=== PATIENT | male | born 1980 | race African-American/Black ===

== ENCOUNTER 2018-07-26 14:24 | Emergency (ER) | payer SELFPAY ==
[2018-07-26] MEDS ORDERED: KETOROLAC 30 MG/ML INJ ONE (15:16)
--- NOTE | 2018-07-26 15:25 | EDPHYS ---
Physician Documentation [facility] Name: Mary Alejandro Age: 37 yrs Sex: Male : 1980 Arrival Date: 07/26/2018 Time: 14:27 Bed 12 Private MD: ED Physician Vinayak Fonseca HPI: 07/26 14:47 This 37 yrs old Black Male presents to ER via Ambulatory with complaints of Leg Pain. snw 14:47 The patient presents with pain, that is acute. The complaints affect the lateral aspect snw of left thigh and left upper thigh. Context: The problem was sustained at an unknown site, resulted from an unknown cause, the patient can fully bear weight, the patient is able to ambulate. Onset: The symptoms/episode began/occurred suddenly. Associated signs and symptoms: The patient has no apparent associated signs or symptoms. Severity of symptoms: At their worst the symptoms were moderate. The patient has not experienced similar symptoms in the past. Historical: - Allergies: 14:34 No Known Allergies; aj1 - Home Meds: 14:34 None [Active]; aj1 - PMHx: 14:34 None; aj1 - PSHx: 14:34 Hernia repair; aj1 - Immunization history:: Flu vaccine is not up to date. - Social history:: Smoking status: Patient uses tobacco products, smokes one-half pack cigarettes per day. - Ebola Screening: : Patient denies travel to an Ebola-affected area in the 21 days before illness onset. ROS: 14:46 Constitutional: Negative for fever, chills, and weight loss, Eyes: Negative for injury, snw pain, redness, and discharge, ENT: Negative for injury, pain, and discharge, Neck: Negative for injury, pain, and swelling, Cardiovascular: Negative for chest pain, palpitations, and edema, Respiratory: Negative for shortness of breath, cough, wheezing, and pleuritic chest pain, Abdomen/GI: Negative for abdominal pain, nausea, vomiting, diarrhea, and constipation, Back: Negative for injury and pain, : Negative for injury, bleeding, discharge, and swelling, Skin: Negative for injury, rash, and discoloration, Neuro: Negative for headache, weakness, numbness, tingling, and seizure. 14:46 MS/extremity: Positive for pain, of the left leg and left hip, Area with increased shooting pain on wt bearing. Exam: 14:45 Constitutional: This is a well developed, well nourished patient who is awake, alert, snw and in no acute distress. Head/Face: Normocephalic, atraumatic. Eyes: Pupils equal round and reactive to light, extra-ocular motions intact. Lids and lashes normal. Conjunctiva and sclera are non-icteric and not injected. Cornea within normal limits. Periorbital areas with no swelling, redness, or edema. ENT: Nares patent. No nasal discharge, no septal abnormalities noted. Tympanic membranes are normal and external auditory canals are clear. Oropharynx with no redness, swelling, or masses, exudates, or evidence of obstruction, uvula midline. Mucous membranes moist. Neck: Trachea midline, no thyromegaly or masses palpated, and no cervical lymphadenopathy. Supple, full range of motion without nuchal rigidity, or vertebral point tenderness. No Meningismus. Chest/axilla: Normal chest wall appearance and motion. Nontender with no deformity. No lesions are appreciated. Cardiovascular: Regular rate and rhythm with a normal S1 and S2. No gallops, murmurs, or rubs. Normal PMI, no JVD. No pulse deficits. Respiratory: Lungs have equal breath sounds bilaterally, clear to auscultation and percussion. No rales, rhonchi or wheezes noted. No increased work of breathing, no retractions or nasal flaring. Abdomen/GI: Soft, non-tender, with normal bowel sounds. No distension or tympany. No guarding or rebound. No evidence of tenderness throughout. Back: No spinal tenderness. No costovertebral tenderness. Full range of motion. Skin: Warm, dry with normal turgor. Normal color with no rashes, no lesions, and no evidence of cellulitis. Neuro: Awake and alert, GCS 15, oriented to person, place, time, and situation. Cranial nerves II-XII grossly intact. Motor strength 5/5 in all extremities. Sensory grossly intact. Cerebellar exam normal. Normal gait. Psych: Awake, alert, with orientation to person, place and time. Behavior, mood, and affect are within normal limits. 14:45 Musculoskeletal/extremity: Extremities: grossly normal except: noted in the left leg and left hip: pain, ROM: intact in all extremities, Circulation is intact in all extremities. Sensation intact. Weight bearing: able to fully bear weight, pain increased with wt bearing. Vital Signs: 14:34 BP 125 / 92; Pulse 87; Resp 18; Temp 98.2(TE); Pulse Ox 97% on R/A; Weight 108.86 kg aj1 (R); Height 6 ft. 3 in. (190.50 cm) (R); 14:34 Body Mass Index 30.00 (108.86 kg, 190.50 cm) aj1 MDM: 14:42 Patient medically screened. [facility] 14:45 Data reviewed: vital signs, nurses notes. Data interpreted: Pulse oximetry: on room air snw is 97 %. Interpretation: normal. Counseling: I had a detailed discussion with the patient and/or guardian regarding: the historical points, exam findings, and any diagnostic results supporting the discharge/admit diagnosis, the presence of at least one elevated blood pressure reading (>120/80) during this emergency department visit, the need for outpatient follow up, to return to the emergency department if symptoms worsen or persist or if there are any questions or concerns that arise at home. Special discussion: I have referred the patient to see his PCP for further evaluation of high blood pressure. Based on the history and exam findings, there is no indication for further emergent testing or inpatient evaluation. I discussed with the patient/guardian the need to see the primary care provider for further evaluation of the symptoms. 07/26 14:45 Order name: Lumbar Spine (3 Views) XRAY snw Administered Medications: 15:15 Drug: TORadol 30 mg Route: IM; Site: right deltoid; rv 15:31 Follow up: Response: No adverse reaction rv Disposition: 07/27 07:02 Co-signature as Attending Physician, Vinayak Fonseca MD I agree with the assessment and [facility] plan of care. Disposition: 07/26/18 15:23 Discharged to Home. Impression: Radiculopathy, lumbar region, Lumbago with sciatica, left side. - Condition is Stable. - Discharge Instructions: Back Pain, Adult, Hypertension, Sciatica, How to Take Your Blood Pressure, [id number], Cryotherapy, Heat Therapy, Managing Your Hypertension, Radicular Pain, Back Exercises, Form - Blood Pressure Record Sheet, Back Injury Prevention. - Prescriptions for Diclofenac Sodium 75 mg Oral Tablet Sustained Release - take 1 tablet by ORAL route 2 times per day; 30 tablet. orphenadrine citrate 100 mg Oral Tablet Sustained Release - take 1 tablet by ORAL route 2 times per day As needed; 20 tablet. - Work release form, Medication Reconciliation Form, Thank You Letter, Antibiotic Education, Prescription Opioid Use form. - Follow up: Private Physician; When: 2 - 3 days; Reason: Recheck today's complaints, Continuance of care, Re-evaluation by your physician. Follow up: Emergency Department; When: As needed; Reason: Worsening of condition. Signatures: Dispatcher [employer] EDMargoth Troncoso, RN RN ajVinayak Zhao MD MD cha Therrien, Shelly, COUNTY ENGINEER-C COUNTY ENGINEER-Csnw Torsten Feliciano, SUNIL RN rv Corrections: (The following items were deleted from the chart) 07/26 15:32 15:23 07/26/2018 15:23 Discharged to Home. Impression: Radiculopathy, lumbar region; rv Lumbago with sciatica, left side. Condition is Stable. Discharge Instructions: Back Pain, Adult, Hypertension, Sciatica, How to Take Your Blood Pressure, [id number], Managing Your Hypertension, Form - Blood Pressure Record Sheet. Prescriptions for Diclofenac Sodium 75 mg Oral Tablet Sustained Release - take 1 tablet by ORAL route 2 times per day; 30 tablet, orphenadrine citrate 100 mg Oral Tablet Sustained Release - take 1 tablet by ORAL route 2 times per day As needed; 20 tablet. and Forms are Medication Reconciliation Form, Thank You Letter, Antibiotic Education, Prescription Opioid Use. Follow up: Private Physician; When: 2 - 3 days; Reason: Recheck today's complaints, Continuance of care, Re-evaluation by your physician. Follow up: Emergency Department; When: As needed; Reason: Worsening of condition. snw
--- NOTE | 2018-07-26 15:25 | ER ---
Nurse's Notes [facility] Name: Mary Alejandro Age: 37 yrs Sex: Male : 1980 Arrival Date: 07/26/2018 Time: 14:27 Bed 12 Private MD: Diagnosis: Radiculopathy, lumbar region;Lumbago with sciatica, left side Presentation: 07/26 14:32 Presenting complaint: Patient states: "The past week I have a pain the goes from there aj1 (pt point to left hip) and goes all the way down the leg" Reports the pain is worse when he walks. Patient denies injury to the left leg. Transition of care: patient was not received from another setting of care. Onset of symptoms was July 19, 2018. Risk Assessment: Do you want to hurt yourself or someone else? Patient reports no desire to harm self or others. Initial Sepsis Screen: Does the patient meet any 2 criteria? No. Patient's initial sepsis screen is negative. Does the patient have a suspected source of infection? No. Patient's initial sepsis screen is negative. Care prior to arrival: None. 14:32 Method Of Arrival: Ambulatory aj1 14:32 Acuity: BARNEY 4 aj1 Triage Assessment: 14:34 General: Appears in no apparent distress. comfortable, Behavior is calm, cooperative, aj1 appropriate for age. Pain: Complains of pain in left hip Pain radiates to left leg Pain currently is 7 out of 10 on a pain scale. Quality of pain is described as throbbing, Pain began one weekago Is continuous, Aggravated by walking. EENT: No signs and/or symptoms were reported regarding the EENT system. Neuro: Level of Consciousness is awake, alert, obeys commands, Oriented to person, place, time, situation. Cardiovascular: Patient's skin is warm and dry. Respiratory: Airway is patent Respiratory effort is even, unlabored, Respiratory pattern is regular, symmetrical. GI: No signs and/or symptoms were reported involving the gastrointestinal system. : No signs and/or symptoms were reported regarding the genitourinary system. Derm: No signs and/or symptoms reported regarding the dermatologic system. Skin is pink, warm \\T\\ dry. normal. Musculoskeletal: Circulation, motion, and sensation intact. Historical: - Allergies: 14:34 No Known Allergies; aj1 - Home Meds: 14:34 None [Active]; aj1 - PMHx: 14:34 None; aj1 - PSHx: 14:34 Hernia repair; aj1 - Immunization history:: Flu vaccine is not up to date. - Social history:: Smoking status: Patient uses tobacco products, smokes one-half pack cigarettes per day. - Ebola Screening: : Patient denies travel to an Ebola-affected area in the 21 days before illness onset. Screenin:35 Abuse screen: Denies threats or abuse. Denies injuries from another. Nutritional aj1 screening: No deficits noted. Tuberculosis screening: No symptoms or risk factors identified. 15:06 Fall Risk None identified. rv Assessment: 14:35 Reassessment: see triage assessment. aj1 15:04 General: Appears in no apparent distress. comfortable, Behavior is calm, cooperative. rv Pain: Complains of pain in left leg. Neuro: Level of Consciousness is awake, alert, obeys commands, Oriented to person, place, time, situation. Cardiovascular: Capillary refill < 3 seconds. Respiratory: Airway is patent. GI: No signs and/or symptoms were reported involving the gastrointestinal system. : No signs and/or symptoms were reported regarding the genitourinary system. : No signs and/or symptoms were reported regarding the genitourinary system. EENT: No signs and/or symptoms were reported regarding the EENT system. Derm: Skin is intact. Musculoskeletal: Reports pain in left leg. Vital Signs: 14:34 BP 125 / 92; Pulse 87; Resp 18; Temp 98.2(TE); Pulse Ox 97% on R/A; Weight 108.86 kg aj1 (R); Height 6 ft. 3 in. (190.50 cm) (R); 14:34 Body Mass Index 30.00 (108.86 kg, 190.50 cm) aj1 ED Course: 14:27 Patient arrived in ED. mr 14:33 Triage completed. aj1 14:34 Arm band placed on Patient placed in an exam room. aj1 14:35 Patient has correct armband on for positive identification. Bed in low position. Call aj1 light in reach. Side rails up X 1. 14:35 No provider procedures requiring assistance completed. aj1 14:39 Lawanda Rivas FNP-C is PHCP. snw 14:39 Vinayak Fonseca MD is Attending Physician. snw 14:59 Torsten Feliciano, SUNIL is Primary Nurse. rv 15:11 Lumbar Spine (3 Views) XRAY In Process Unspecified. EDMS 15:31 Patient did not have IV access during this emergency room visit. rv Administered Medications: 15:15 Drug: TORadol 30 mg Route: IM; Site: right deltoid; rv 15:31 Follow up: Response: No adverse reaction rv Outcome: 15:23 Discharge ordered by . snw 15:31 Discharged to home ambulatory. rv 15:31 Condition: good 15:31 Discharge instructions given to patient, Instructed on discharge instructions, follow up and referral plans. medication usage, Demonstrated understanding of instructions, follow-up care, medications, Prescriptions given X 2. 15:32 Patient left the ED. rv Signatures: Dispatcher [employer] EDKY Margoth Foreman, RN RN aj1 Lawanda Rivas, BIG DATA ENGINEER-C BIG DATA ENGINEER-Csnw Latia Moreau mr Torsten Feliciano, RN RN rv
--- NOTE | 2018-07-26 16:12 | RAD REPORT ---
EXAM DESCRIPTION: RAD - Lumbar Spine 3 Views - 07/26/2018 3:15 pm CLINICAL HISTORY: Pain, left lower extremity radiculopathy COMPARISON: None. FINDINGS: A three-view lumbar spine examination was performed. Lumbar bodies are normal in height an d alignment. No fracture or acute bony process seen. No abnormal disc space narrowing. L5 body is par tially sacralized which would explain the relative narrowing of the L5-S1 disc space. No significant facet joint degenerative change. No pars defects identified. IMPRESSION: Negative Lumbar Spine examination for acute or significant finding. Continued unexplained symptoms can be addressed with MR imaging.
== END 2018-07-26 15:32 | disposition home or self-care (01) ==
LOC: ER 14:24
DX: M54.16 Radiculopathy, lumbar region (principal); M54.42 Lumbago with sciatica, left side; F17.210 Nicotine dependence, cigarettes, uncomplicated
CPT/HCPCS: 72100; 96372; 99283

== ENCOUNTER 2022-04-03 20:30 | Inpatient (IN) | payer SELFPAY ==
[2022-04-03] MEDS ORDERED: NA CHLORIDE 0.9% 1,000 ML ONE (22:13)
[2022-04-03] MEDS ORDERED: DICYCLOMINE HCL 20 MG/2 ML AMP IM ONE (22:13)
[2022-04-03] MEDS ORDERED: ONDANSETRON 4 MG/2 ML VIAL ONE (22:13)
[2022-04-03 22:29] LABS: Urine Blood 1+ (Negative); Urine Glucose 2+ (Negative); Urine Protein 1+ (Negative); Urine Specific Gravity >=1.030 (1.005-1.030)
[2022-04-03 22:40] LABS: Absolute Lymphocytes (CBC) 1.3 K/uL (0.7-4.9); Hematocrit 46.5 % (39.6-49.0); MCV 91.7 fL (80-100); MPV 10.6 fL (7.6-11.3); RBC Red Blood Cell Count 5.06 M/uL (4.33-5.43)
[2022-04-03 22:56] LABS: Urine Bacteria <20 /HPF (<20); Urine Mucus Slight /HPF (None Seen); Urine RBC <5 /HPF (None Seen)
[2022-04-03 23:01] LABS: ALT/SGPT 20 U/L (16-61); Albumin 3.2 g/dL (3.4-5.0); Alkaline Phosphatase 109 U/L (45-117); BUN Blood Urea Nitrogen 17 mg/dL (7-18); Bicarbonate 16 mmol/L (21-32); Bilirubin Total 0.9 mg/dL (0.2-1.0); Glomerular Filtration Rate 62 ml/min (=/>90); Glucose Level 331 mg/dL (74-106); Lipase 222 U/L (73-393); Protein, Total 8.8 g/dL (6.4-8.2); Sodium Level 129 mmol/L (136-145)
[2022-04-03 23:02] LABS: AST/SGOT 21 U/L (15-37); Potassium 5.1 mmol/L (3.5-5.1)
[2022-04-04 00:20] LABS: SARS-CoV-2 Antigen Rapid Res Negative (Negative)
--- NOTE | 2022-04-04 00:38 | EDPHYS ---
Physician Documentation [facility] Name: Mary Carver Age: 41 yrs Sex: Male : 1980 Arrival Date: 04/03/2022 Time: 20:32 Bed 3 Private MD: ED Physician Vinayak Fonseca HPI: 04/03 22:00 This 41 yrs old Black Male presents to ER via Ambulatory with complaints of High Blood cp Sugar, Nausea. 22:00 The patient or guardian reports hyperglycemia. cp 22:00 Onset: The symptoms/episode began/occurred for past several days. Associated signs and cp symptoms: Pertinent positives: nausea, lower abdominal pain. Current symptoms: In the emergency department the patient's symptoms are unchanged from the initial presentation, despite home interventions. Significant other reports she has been administering Insulin over past couple days to try and lower blood sugar. Historical: - Allergies: 21:20 No Known Allergies; lg3 - Home Meds: 21:20 None [Active]; lg3 - PMHx: 21:20 None; lg3 - PSHx: 21:20 umbilical hernia; lg3 - Immunization history:: Adult Immunizations not up to date, Client reports having NOT received the Covid vaccine. Flu vaccine is not up to date. - Social history:: Smoking status: Patient reports the use of cigarette tobacco products, smokes one pack cigarettes per day. Patient uses alcohol, on a daily basis. ROS: 22:05 Constitutional: Negative for body aches, chills, fever, poor PO intake. cp 22:05 Eyes: Negative for injury, pain, redness, and discharge. cp 22:05 ENT: Negative for drainage from ear(s), ear pain, sore throat, difficulty swallowing, difficulty handling secretions. 22:05 Cardiovascular: Negative for chest pain, edema, palpitations. 22:05 Respiratory: Negative for cough, shortness of breath, wheezing. 22:05 Abdomen/GI: Positive for abdominal pain, nausea, Negative for vomiting, diarrhea, constipation. 22:05 Back: Negative for pain at rest, pain with movement. 22:05 : Positive for urinary frequency, Negative for burning with urination, penile discharge, testicular pain 22:05 Neuro: Negative for altered mental status. 22:05 All other systems are negative. Exam: 22:10 Constitutional: The patient appears in no acute distress, alert, awake, cp non-diaphoretic, non-toxic, well developed, well nourished. 22:10 Head/Face: Normocephalic, atraumatic. cp 22:10 Eyes: Periorbital structures: appear normal, Pupils: equal, round, and reactive to light and accomodation, Extraocular movements: intact throughout, Conjunctiva: normal, no exudate, no injection, Sclera: no appreciated abnormality, Lids and lashes: appear normal, bilaterally. 22:10 ENT: External ear(s): are unremarkable, Nose: is normal, Mouth: Lips: moist, Oral mucosa: pink and intact, moist, Posterior pharynx: Airway: no evidence of obstruction, patent. 22:10 Chest/axilla: Inspection: normal. 22:10 Cardiovascular: Rate: tachycardic, Rhythm: regular, Edema: is not appreciated, JVD: is not appreciated. 22:10 Respiratory: the patient does not display signs of respiratory distress, Respirations: normal, no use of accessory muscles, no retractions, labored breathing, is not present, Breath sounds: are clear throughout, no decreased breath sounds, no stridor, no wheezing. 22:10 Abdomen/GI: Inspection: abdomen appears normal, Bowel sounds: active, all quadrants, Palpation: soft, in all quadrants, moderate abdominal tenderness, in the right lower quadrant and left lower quadrant, rebound tenderness, is not appreciated, involuntary guarding, is not appreciated. 22:10 Back: CVA tenderness, is absent. 22:10 Skin: cellulitis, is not appreciated, no rash present. 22:10 Neuro: Orientation: to person, place \T\ time. Mentation: able to follow commands, slow to respond, Motor: moves all fours, strength is normal, Sensation: no obvious gross deficits. Vital Signs: 21:17 BP 132 / 93; Pulse 111; Resp 19 S; Temp 98.6(O); Pulse Ox 100% on R/A; Weight 111.13 kg lg3 (R); Height 6 ft. 3 in. (190.50 cm) (R); Pain 6/10; 22:30 BP 144 / 92; Pulse 96; Resp 20; Pulse Ox 97% on R/A; Pain 3/10; pf1 23:18 BP 133 / 79; Pulse 95; Resp 18; Pulse Ox 96% on R/A; Pain 3/10; pf1 04/04 00:00 BP 137 / 81; Pulse 97; Resp 17; Pulse Ox 96% on R/A; Pain 1/10; pf1 01:00 BP 150 / 84; Pulse 101; Resp 19; Pulse Ox 96% on R/A; Pain 0/10; pf1 02:00 BP 139 / 83; Pulse 100; Resp 17; Temp 98; Pulse Ox 96% on R/A; Pain 0/10; pf1 04/03 21:17 Body Mass Index 30.62 (111.13 kg, 190.50 cm) lg3 MDM: 04/03 21:43 Patient medically screened. cp 04/04 00:35 Data reviewed: vital signs, nurses notes, lab test result(s), radiologic studies, CT cp scan. 00:35 Consideration of Admission/Observation Patient was admitted/placed on observation. cp Management of patient was discussed with the following: Hospitalist: Gio Doherty with admit patient after discussion. I considered the following discharge prescriptions or medication management in the emergency department Medications were administered in the Emergency Department. See MAR. Historians other than the Patient: Spouse/Significant Other: Significant other provides HPI. Counseling: I had a detailed discussion with the patient and/or guardian regarding: the historical points, exam findings, and any diagnostic results supporting the discharge/admit diagnosis, lab results, radiology results, the need for further work-up and treatment in the hospital. 04/03 21:41 Order name: Glucose, Ancillary Testing; Complete Time: 21:43 EDMS 04/03 21:44 Order name: CBC with Diff; Complete Time: 22:56 cp 04/03 22:56 Interpretation: Reviewed. cp 04/03 21:44 Order name: CMP; Complete Time: 23:24 cp 04/03 21:44 Order name: Lipase; Complete Time: 23:24 cp 04/03 21:44 Order name: Urine Microscopic Only; Complete Time: 23:24 cp 04/03 21:44 Order name: Ketone, Serum; Complete Time: 23:24 cp 04/03 22:07 Order name: CT Abd/Pelvis - IV Contrast Only cp 04/03 22:30 Order name: Urine Dipstick-Ancillary; Complete Time: 22:39 EDMS 04/03 22:39 Interpretation: Normal except: UGLUC 2+; UKET 3+; UBLD 1+; UPROT 1+. cp 04/03 23:27 Order name: SARS RAPID; Complete Time: 00:35 la1 04/04 00:16 Order name: BMP; Complete Time: 01:19 la1 04/04 01:19 Interpretation: Normal except: NA 132; CO2 13; ANION GAP 23.6; GLUC 315; GFR 87; CA 9.2.cp 04/04 00:45 Order name: Lipid Profile; Complete Time: 01:40 vc1 04/03 21:44 Order name: IV Saline Lock; Complete Time: 22:34 cp 04/03 21:44 Order name: Labs collected and sent; Complete Time: 22:35 cp 04/03 21:44 Order name: Urine Dipstick-Ancillary (obtain specimen); Complete Time: 22:35 cp Administered Medications: 04/03 22:25 Drug: Zofran (Ondansetron) 4 mg Route: IVP; Site: left antecubital; pf1 23:01 Follow up: Response: No adverse reaction; Marked relief of symptoms; Nausea is decreasedpf1 22:25 Drug: NS 0.9% 1000 ml Route: IV; Rate: 1 bolus; Site: left antecubital; pf1 23:30 Follow up: IV Status: Completed infusion; IV Intake: 1000ml pf1 22:30 Drug: NS 0.9% 1000 ml Route: IV; Rate: 1 bolus; Site: left antecubital; pf1 23:30 Follow up: Response: No adverse reaction; Marked relief of symptoms pf1 23:30 Follow up: IV Status: Completed infusion; IV Intake: 1000ml pf1 22:30 Drug: Dicyclomine 20 mg Route: IM; Site: left gluteus; pf1 23:03 Follow up: Response: No adverse reaction; Marked relief of symptoms; Pain is decreased; pf1 RASS: Alert and Calm (0) 04/04 01:40 Drug: Insulin Drip - (Insulin Regular Human 100 units, NS 0.9% 100 ml) {Co-Signature: pf1 aa9 (Cary Denney RN).} Route: IV; Rate: 5 units/hr; Site: left antecubital; 02:04 Follow up: Response: No adverse reaction pf1 01:50 Drug: NS 0.45 % 1000 ml Route: IV; Rate: 125 ml/hr; Site: right antecubital; pf1 02:04 Follow up: Response: No adverse reaction pf1 Disposition Summary: 04/04/22 00:37 Hospitalization Ordered Hospitalization Status: Inpatient Admission cp Provider: Scott Nettles cp Location: Intensive Care Unit cp Condition: Fair cp Problem: new cp Symptoms: have improved cp Bed/Room Type: Standard cp Room Assignment: 7-(04/04/22 01:43) cg Diagnosis - Other specified diabetes mellitus with ketoacidosis cp - Acute pancreatitis without necrosis or infection, unspecified cp Forms: - Medication Reconciliation Form cp - SBAR form cp Signatures: Dispatcher [employer] EDMS Gio Doherty, ISAIAH-C PRODUCTION REPRODUCTION MANAGER-Cla1 Vinayak Lin PA PA cp Ranjana Guzmán RN RN cg Brittany Zacarias RN RN lg3 Ruth cowan RN RN pf1 Cary Denney RN aa9 Corrections: (The following items were deleted from the chart) 01:28 00:37 cp cg 01:43 01:28 3- cg cg
--- NOTE | 2022-04-04 00:38 | ER ---
Nurse's Notes [facility] Name: Mary Carver Age: 41 yrs Sex: Male : 1980 Arrival Date: 04/03/2022 Time: 20:32 Bed 3 Private MD: Diagnosis: Other specified diabetes mellitus with ketoacidosis;Acute pancreatitis without necrosis or infection, unspecified Presentation: 04/03 21:17 Chief complaint: Patient states: increased urination and thirst for the last few days. lg3 abdominal pain with nausea. no appetite. finger sticks at home ranging 250's-350's. not diagnosed as diabetic. taking over the counter insulin at home but nothing is lowering sugars. Coronavirus screen: Client denies travel out of the [place] in the last 14 days. At this time, the client does not indicate any symptoms associated with coronavirus-19. Ebola Screen: No symptoms or risks identified at this time. Initial Sepsis Screen: Does the patient meet any 2 criteria? No. Patient's initial sepsis screen is negative. Does the patient have a suspected source of infection? No. Patient's initial sepsis screen is negative. Risk Assessment: Do you want to hurt yourself or someone else? Patient reports no desire to harm self or others. Onset of symptoms is unknown. 21:17 Method Of Arrival: Ambulatory lg3 21:17 Acuity: BARNEY 3 lg3 Triage Assessment: 21:20 General: Appears in no apparent distress. comfortable, Behavior is calm, cooperative. lg3 Pain: Complains of pain in abdomen Pain radiates to back Pain currently is 6 out of 10 on a pain scale. Quality of pain is described as squeezing. EENT: No deficits noted. No signs and/or symptoms were reported regarding the EENT system. Neuro: No deficits noted. [place] Agitation-Sedation Scale (RASS): 0 - Alert and Calm Level of Consciousness is awake, alert, obeys commands, Oriented to person, place, time, situation. Cardiovascular: No deficits noted. Denies chest pain, shortness of breath, Capillary refill < 3 seconds Clubbing of nail beds is absent JVD is absent Patient's skin is warm and dry. Respiratory: No deficits noted. Airway is patent Trachea midline Respiratory effort is even, unlabored, Respiratory pattern is regular, symmetrical. GI: Abdomen is flat, non-distended, Reports lower abdominal pain, anorexia, cramping, intolerance of fluids, intolerance of food, nausea. : No deficits noted. No signs and/or symptoms were reported regarding the genitourinary system. Derm: No deficits noted. No signs and/or symptoms reported regarding the dermatologic system. Skin is intact, is healthy with good turgor, Skin is dry, Skin is normal. Musculoskeletal: No deficits noted. Circulation, motion, and sensation intact. Range of motion: intact in all extremities. Historical: - Allergies: 21:20 No Known Allergies; lg3 - Home Meds: 21:20 None [Active]; lg3 - PMHx: 21:20 None; lg3 - PSHx: 21:20 umbilical hernia; lg3 - Immunization history:: Adult Immunizations not up to date, Client reports having NOT received the Covid vaccine. Flu vaccine is not up to date. - Social history:: Smoking status: Patient reports the use of cigarette tobacco products, smokes one pack cigarettes per day. Patient uses alcohol, on a daily basis. Screenin:30 [facility] ED Fall Risk Assessment (Adult) History of falling in the last 3 months, pf1 including since admission No falls in past 3 months (0 pts) Confusion or Disorientation No (0 pts) Intoxicated or Sedated No (0 pts) Impaired Gait No (0 pts) Mobility Assist Device Used No (0 pt) Altered Elimination No (0 pt) Score/Fall Risk Level 0 - 2 = Low Risk Oriented to surroundings, Maintained a safe environment, Educated pt \T\ family on fall prevention, incl call for assistance when getting out of bed, Assessed \T\ reinforced patient's understanding of fall precautions, Provided non-skid footwear, Hourly rounding (assess needs \T\ fall precautionary measures) done, Used ambulatory aids as needed (educated on \T\ assisted with). 21:30 Abuse screen: Denies threats or abuse. Nutritional screening: No deficits noted. pf1 Tuberculosis screening: No symptoms or risk factors identified. Assessment: 21:30 General: Appears in no apparent distress. comfortable, well groomed, well developed, pf1 Behavior is calm, cooperative, appropriate for age, quiet. 21:30 Neuro: No deficits noted. Level of Consciousness is awake, alert, obeys commands, pf1 Oriented to person, place, time, situation. EENT: No deficits noted. No signs and/or symptoms were reported regarding the EENT system. 21:30 General: Behavior is quiet. Pain: Complains of pain in abdomen Pain currently is 6 out pf1 of 10 on a pain scale. Cardiovascular: No deficits noted. Capillary refill < 3 seconds Patient's skin is warm and dry. Respiratory: No deficits noted. Airway is patent Trachea midline Respiratory effort is even, unlabored, Respiratory pattern is regular, symmetrical, Breath sounds are clear bilaterally. GI: Abdomen is round non-distended, Reports lower abdominal pain, nausea, with increase thirst and increase urination for 3 days. : Reports increase urination for 3 days. 21:30 General: stated patient's FSBGL has been running high: 347 BGL yesterday and pf1 240-306 today. stated has been giving patient regular insulin 12 units this AM, that is not prescribed to patient.. 22:30 Reassessment: Patient appears in no apparent distress at this time. Patient and/or pf1 family updated on plan of care and expected duration. Pain level reassessed. Patient is alert, oriented x 3, equal unlabored respirations, skin warm/dry/pink. Patient states symptoms have improved. 23:30 Reassessment: Patient appears in no apparent distress at this time. Patient and/or pf1 family updated on plan of care and expected duration. Pain level reassessed. Patient is alert, oriented x 3, equal unlabored respirations, skin warm/dry/pink. Patient states feeling better. Patient states symptoms have improved. 04/04 00:30 Reassessment: Patient appears in no apparent distress at this time. Patient and/or pf1 family updated on plan of care and expected duration. Pain level reassessed. Patient is alert, oriented x 3, equal unlabored respirations, skin warm/dry/pink. Patient states feeling better. Patient states symptoms have improved. 01:30 Reassessment: Patient appears in no apparent distress at this time. Patient and/or pf1 family updated on plan of care and expected duration. Pain level reassessed. Patient is alert, oriented x 3, equal unlabored respirations, skin warm/dry/pink. Patient denies pain at this time. Patient states feeling better. Patient states symptoms have improved. Vital Signs: 04/03 21:17 BP 132 / 93; Pulse 111; Resp 19 S; Temp 98.6(O); Pulse Ox 100% on R/A; Weight 111.13 kg lg3 (R); Height 6 ft. 3 in. (190.50 cm) (R); Pain 6/10; 22:30 BP 144 / 92; Pulse 96; Resp 20; Pulse Ox 97% on R/A; Pain 3/10; pf1 23:18 BP 133 / 79; Pulse 95; Resp 18; Pulse Ox 96% on R/A; Pain 3/10; pf1 04/04 00:00 BP 137 / 81; Pulse 97; Resp 17; Pulse Ox 96% on R/A; Pain 1/10; pf1 01:00 BP 150 / 84; Pulse 101; Resp 19; Pulse Ox 96% on R/A; Pain 0/10; pf1 02:00 BP 139 / 83; Pulse 100; Resp 17; Temp 98; Pulse Ox 96% on R/A; Pain 0/10; pf1 04/03 21:17 Body Mass Index 30.62 (111.13 kg, 190.50 cm) lg3 ED Course: 04/03 20:32 Patient arrived in ED. as 20:57 Vinayak Lin PA is PHCP. cp 20:57 Vinayak Fonseca MD is Attending Physician. cp 21:20 Triage completed. lg3 21:20 Arm band placed on left wrist. lg3 21:30 Patient has correct armband on for positive identification. Placed in gown. Bed in low pf1 position. Call light in reach. Side rails up X 1. 22:25 Inserted saline lock: 20 gauge in left antecubital area, using aseptic technique. Blood pf1 collected. 22:35 Urine Microscopic Only Sent. pf1 22:35 Lipase Sent. pf1 22:35 CMP Sent. pf1 22:35 CBC with Diff Sent. pf1 22:35 Ketone, Serum Sent. pf1 22:36 Ruth cowan, SUNIL is Primary Nurse. pf1 22:48 Warm blanket given. aa9 23:16 CT Abd/Pelvis - IV Contrast Only In Process Unspecified. EDMS 04/04 00:36 Scott Nettles MD is Hospitalizing Provider. cp 01:07 BMP Sent. pf1 01:07 Lipid Profile Sent. pf1 01:52 Inserted saline lock: 20 gauge in right antecubital area, using aseptic technique. ds4 02:06 No provider procedures requiring assistance completed. pf1 02:06 Patient admitted, IV remains in place. pf1 Administered Medications: 04/03 22:25 Drug: Zofran (Ondansetron) 4 mg Route: IVP; Site: left antecubital; pf1 23:01 Follow up: Response: No adverse reaction; Marked relief of symptoms; Nausea is decreasedpf1 22:25 Drug: NS 0.9% 1000 ml Route: IV; Rate: 1 bolus; Site: left antecubital; pf1 23:30 Follow up: IV Status: Completed infusion; IV Intake: 1000ml pf1 22:30 Drug: NS 0.9% 1000 ml Route: IV; Rate: 1 bolus; Site: left antecubital; pf1 23:30 Follow up: Response: No adverse reaction; Marked relief of symptoms pf1 23:30 Follow up: IV Status: Completed infusion; IV Intake: 1000ml pf1 22:30 Drug: Dicyclomine 20 mg Route: IM; Site: left gluteus; pf1 23:03 Follow up: Response: No adverse reaction; Marked relief of symptoms; Pain is decreased; pf1 RASS: Alert and Calm (0) 04/04 01:40 Drug: Insulin Drip - (Insulin Regular Human 100 units, NS 0.9% 100 ml) {Co-Signature: pf1 aa9 (Cary Denney RN).} Route: IV; Rate: 5 units/hr; Site: left antecubital; 02:04 Follow up: Response: No adverse reaction pf1 01:50 Drug: NS 0.45 % 1000 ml Route: IV; Rate: 125 ml/hr; Site: right antecubital; pf1 02:04 Follow up: Response: No adverse reaction pf1 Medication: 02:06 VIS not applicable for this client. pf1 Intake: 04/03 23:30 IV: 1000ml; Total: 1000ml. pf1 23:30 IV: 1000ml; Total: 2000ml. pf1 Outcome: 04/04 00:37 Decision to Hospitalize by Provider. cp 02:14 Admitted to ICU accompanied by nurse, via stretcher, room 7, on monitor, with chart, pf1 Report called to SUNIL Davis 02:14 Condition: stable 02:14 Instructed on the need for admit, Demonstrated understanding of instructions. 02:23 Patient left the ED. pf1 Signatures: Dispatcher [employer] EDMS Sonja Winn Donovan ds4 Vinayak Lin PA PA cp Gibson, Lacie, RN RN lg3 Cary Denney, SUNIL RN aa9 Ruth ocwan RN RN pf1 Cary Denney RN aa9 Corrections: (The following items were deleted from the chart) 04/03 23:16 21:00 General: Appears in no apparent distress. comfortable, well groomed, well pf1 developed, Behavior is calm, cooperative, appropriate for age, quiet, pf1 23:16 21:00 Pain: Complains of pain in lower abdominal pain.onset yesterday Pain currently is pf1 6 out of 10 on a pain scale. pf1 23:16 21:00 Neuro: No deficits noted. Level of Consciousness is awake, alert, obeys commands, pf1 Oriented to person, place, time, situation, pf1 23:16 21:00 Cardiovascular: No deficits noted. Capillary refill < 3 seconds Patient's skin is pf1 warm and dry. pf1 23:16 21:00 GI: Abdomen is flat, non-distended, Bowel sounds present X 4 quads. Abd is soft pf1 and non tender X 4 quads. Reports lower abdominal pain, nausea, pf1 23:16 21:00 : No deficits noted. Reports increase urination for 3 days pf1 pf1 23:16 21:00 GI: Reports with increase thirst for 3 days pf1 pf1 23:16 21:00 EENT: No deficits noted. No signs and/or symptoms were reported regarding the pf1 EENT system. pf1 23:16 21:00 Derm: No deficits noted. No signs and/or symptoms reported regarding the pf1 dermatologic system. pf1
[2022-04-04 01:16] LABS: Potassium 4.6 mmol/L (3.5-5.1)
--- NOTE | 2022-04-04 01:34 | P.HP ---
Certification for Inpatient Patient admitted to: Inpatient With expected LOS: >2 Midnights Patient will require the following post-hospital care: None Practitioner: I am a practitioner with admitting privileges, knowledge of patient current condition, hospital course, and medical plan of care. Services: Services provided to patient in accordance with Admission requirements found in Title 42 Section 412.3 of the Code of Federal Regulations <[place] - Last Filed: 04/04/22 01:30> Patient History Date of Service: 04/04/22 Reason for admission: DKA, pancreatitis History of Present Illness: 41-year-old male who denies any previous medical history presents the emergency department with high blood sugar, nausea, abdominal pain. His family at bedside reports that a couple years ago he was told he was diabetic and he took insulin for a short period of time but stopped taking it on his own volition. He reports abdominal pain and nausea last few days as well as increased thirst/urination. His checked his blood sugar and found it to be running in the 300s. His labs in the ER demonstrated DKA, CT abdomen pelvis IV contrast showed mild uncomplicated acute pancreatitis, lipase was within normal limits although patient does have mild abdominal pain. He was started on insulin drip, will be moved to the ICU for further management. - Past Medical/Surgical History -: Diabetes mellitus type 2 -: Hernia repair Psychosocial/ Personal History: Lives at home with family - Family History Mother -: Diabetes, Stroke - Social History Smoking Status: Current every day smoker Smoking therapy provided: No (Patient declined) Alcohol use: Yes CD- Drugs: No Caffeine use: No Place of Residence: Home <BessyGio - Last Filed: 04/04/22 01:30> Date of Service: 04/04/22 <Scott Nettles - Last Filed: 04/04/22 19:58> Review of Systems 10-point ROS is otherwise unremarkable Gastrointestinal: Nausea, Abdominal Pain <Gio Doherty - Last Filed: 04/04/22 01:30> Physical Examination - Physical Exam General: Alert, In no apparent distress, Oriented x3 HEENT: Atraumatic, PERRLA, Mucous membr. moist/pink, EOMI, Sclerae nonicteric Neck: Supple, 2+ carotid pulse no bruit, No LAD, Without JVD or thyroid abnormality Respiratory: Clear to auscultation bilaterally, Normal air movement Cardiovascular: Regular rate/rhythm, Normal S1 S2 Capillary refill: <2 Seconds Gastrointestinal: Normal bowel sounds, No tenderness Musculoskeletal: No tenderness Integumentary: No rashes Neurological: Normal speech, Normal strength at 5/5 x4 extr, Normal tone, Normal affect Lymphatics: No axilla or inguinal lymphadenopathy - Studies Laboratory Data (last 24 hrs) 04/04/22 00:45: Sodium 132 L, Potassium 4.6, BUN 17, Creatinine 1.09, Glucose 315 H 04/03/22 22:20: Sodium 129 L, Potassium 5.1, BUN 17, Creatinine 1.45 H, Glucose 331 H, Total Bilirubin 0.9, AST 21, ALT 20, Alkaline Phosphatase 109, Lipase 222 04/03/22 22:20: WBC 14.00 H, Hgb 15.6, Hct 46.5, Plt Count 159 <Gio Doherty - Last Filed: 04/04/22 01:30> - Studies Laboratory Data (last 24 hrs) 04/04/22 00:45: Triglycerides 358 H, Cholesterol 238 H, HDL Cholesterol 51, Cholesterol/HDL Ratio 4.67 04/04/22 00:45: Sodium 132 L, Potassium 4.6, BUN 17, Creatinine 1.09, Glucose 315 H 04/03/22 22:20: Sodium 129 L, Potassium 5.1, BUN 17, Creatinine 1.45 H, Glucose 331 H, Total Bilirubin 0.9, AST 21, ALT 20, Alkaline Phosphatase 109, Lipase 222 04/03/22 22:20: WBC 14.00 H, Hgb 15.6, Hct 46.5, Plt Count 159 <Scott Nettles - Last Filed: 04/04/22 19:58> Assessment and Plan - Plan Assessment: Diabetes mellitus type 2 with DKA Acute pancreatitis Plan: Diabetes mellitus type 2 with DKA Insulin drip, hourly Accu-Cheks, every 4 hour BMP, A1c in the morning. Patient not on any antidiabetic agents at home. Acute pancreatitis Lipase within normal limits CT shows mild uncomplicated pancreatitis, patient with mild abdominal pain no tenderness on exam. N.p.o. aside from ice chips/sips of water. Trend lipase level. Lipid Panel pending. DVT PPX: Lovenox Code status: Full Discharge Plan: Home Plan to discharge in: 48 Hours - Advance Directives Does patient have a Living Will: No Does patient have a Durable POA for Healthcare: No - Code Status/Comfort Care Code Status Assessed: Yes (Full code) Critical Care: No Time Spent Managing Pts Care (In Minutes): 55 <Gio Doherty - Last Filed: 04/04/22 01:30> - Plan Patient seen and examined on rounds this morning. No nausea/vomiting, no abd pain. lgc improving anticipate off insulin drip this evening uninsured, will transition to 70/30 <Scott Nettles - Last Filed: 04/04/22 19:58>
[2022-04-04] MEDS ORDERED: NACHLORIDE 0.45% 1,000 ML IV ONE (01:36)
[2022-04-04] MEDS ORDERED: INSULIN -REGULAR HUMAN 50 UNIT/0.5 ML ML ONE (01:36)
[2022-04-04] MEDS ORDERED: NA CHLORIDE 0.9% 100 ML IV ONE (01:37)
[2022-04-04] MEDS ORDERED: INSULIN -REGULAR HUMAN 100 UNIT in NA CHLORIDE 0.9% 100 ML IV SCH (02:15)
[2022-04-04] MEDS: NACHLORIDE 0.45% 1,000 ML IV SCH ×2 (02:15→10:15)
[2022-04-04] MEDS ORDERED: ONDANSETRON 4 MG/2 ML VIAL IV PRN (02:15)
[2022-04-04] MEDS: D5 0.45 NS 1,000 ML IV SCH ×3 (02:15→14:47)
[2022-04-04 03:15] VITALS: BMI 27.0
[2022-04-04 05:52] LABS: Absolute Lymphocytes (CBC) 1.4 K/uL (0.7-4.9); Hematocrit 40.4 % (39.6-49.0); Lymphocytes % 11.8 % (15.3-44.8); MCV 91.1 fL (80-100); MPV 10.5 fL (7.6-11.3); RBC Red Blood Cell Count 4.43 M/uL (4.33-5.43)
[2022-04-04] MEDS: ENOXAPARIN 40 MG/0.4 ML SQ SCH (07:33)
[2022-04-04 07:44] LABS: Magnesium 2.1 mg/dL (1.6-2.4); Phosphorus 2.5 mg/dL (2.5-4.9); Potassium 4.3 mmol/L (3.5-5.1)
[2022-04-04 08:00] VITALS: O2SAT 100
[2022-04-04 09:35] LABS: BUN Blood Urea Nitrogen 15 mg/dL (7-18); Bicarbonate 18 mmol/L (21-32); Glomerular Filtration Rate 109 ml/min (=/>90); Glucose Level 203 mg/dL (74-106); Potassium 4.1 mmol/L (3.5-5.1); Sodium Level 133 mmol/L (136-145)
[2022-04-04 14:27] LABS: BUN Blood Urea Nitrogen 14 mg/dL (7-18); Bicarbonate 22 mmol/L (21-32); Glomerular Filtration Rate 114 ml/min (=/>90); Glucose Level 173 mg/dL (74-106); Sodium Level 137 mmol/L (136-145)
[2022-04-04] MEDS ORDERED: GLUCAGON 1 MG/VIAL IM PRN (16:16)
[2022-04-04] MEDS ORDERED: D50W 25 GM/50 ML SYRINGE IV PRN (16:16)
[2022-04-04] MEDS: INSULIN -REGULAR HUMAN 50 UNIT/0.5 ML ML SQ SCH ×2 (16:30→20:55)
[2022-04-04] MEDS ORDERED: D10W 125 ML IV PRN (16:35)
[2022-04-04 17:36] LABS: BUN Blood Urea Nitrogen 13 mg/dL (7-18); Bicarbonate 19 mmol/L (21-32); Glomerular Filtration Rate 116 ml/min (=/>90); Glucose Level 195 mg/dL (74-106); Sodium Level 134 mmol/L (136-145)
[2022-04-04 17:43] LABS: Potassium 4.2 mmol/L (3.5-5.1)
[2022-04-04] MEDS ORDERED: INSULIN 70/30 100 UNITS/ML SQ SCH (21:00)
[2022-04-05 05:09] LABS: Absolute Lymphocytes (CBC) 1.4 K/uL (0.7-4.9); Hematocrit 39.6 % (39.6-49.0); Lymphocytes % 22.2 % (15.3-44.8); MCV 89.4 fL (80-100); MPV 9.7 fL (7.6-11.3); RBC Red Blood Cell Count 4.43 M/uL (4.33-5.43)
[2022-04-05 05:31] LABS: BUN Blood Urea Nitrogen 12 mg/dL (7-18); Bicarbonate 22 mmol/L (21-32); Glomerular Filtration Rate 115 ml/min (=/>90); Glucose Level 210 mg/dL (74-106); Lipase 161 U/L (73-393); Phosphorus 2.1 mg/dL (2.5-4.9); Potassium 3.6 mmol/L (3.5-5.1); Sodium Level 135 mmol/L (136-145)
[2022-04-05] MEDS: INSULIN -REGULAR HUMAN 50 UNIT/0.5 ML ML SQ SCH ×2 (08:02→12:03)
[2022-04-05] MEDS: ENOXAPARIN 40 MG/0.4 ML SQ SCH (08:04)
[2022-04-05] MEDS ORDERED: INSULIN 70/30 100 UNITS/ML SQ SCH (09:00)
[2022-04-05 13:20] VITALS: TEMP 96.6
[2022-04-05 14:48] VITALS: BP 125/89
--- NOTE | 2022-04-05 15:23 | RAD REPORT ---
EXAM DESCRIPTION: CT - Abdomen Pelvis W Contrast - 04/04/2022 6:17 am CLINICAL HISTORY: 41-year-old male with lower abdominal pain. COMPARISON: None. TECHNIQUE: CT of the abdomen and pelvis was performed following intravenous administration of contra st. Oral contrast was not administered. Multiplanar reformatted images were provided. This exam was p erformed according to our departmental dose optimization program which includes use of automated expo sure control, adjustment of the mA and/or kV according to patient size and/or use of iterative recons truction technique. FINDINGS: Chest: Evaluation through the lung bases reveals no focal opacity, pleural effusion or pne umothorax. Heart size is within normal limits. No pericardial effusion. Abdomen and pelvis: Diffusely edematous appearance of the pancreas with peripancreatic stranding comp atible with acute pancreatitis. No organizing fluid collection. The liver, gallbladder, spleen, bilateral kidneys and bilateral adrenal glands are within normal limi ts. Subcentimeter focus of hypoattenuation the level of the dome of the right lobe liver suggesting s imple hepatic cyst, however too small to further characterize measuring 8 mm. The vessels are patent and normal in caliber. No abdominopelvic lymph nodes are noted to be pathologically enlarged by CT measurement criteria. The bowel is within normal limits without abnormal bowel wall thickness or bowel dilation. No free air. No free abdominopelvic fluid collections. The appendix is within normal limits. The osseous structures are within normal limits. There are six lumbar type vertebral bodies with lumb arization of S1 and right hemisacralization. Right-sided pars interarticularis defect at S1-S2. IMPRESSION: Diffusely edematous appearance of the pancreas with peripancreatic stranding compatible with acute pancreatitis. Electronically signed by: Jolanta Mary MD 04/03/2022 11:45 PM MACHINE ATTENDANT Due to temporary technical issues with the PACS/Fluency reporting system, reports are being signed by the in house radiologists without review as a courtesy to insure prompt reporting. The interpreting radiologist is fully responsible for the content of the report.
--- NOTE | 2022-04-13 23:51 | P.DS ---
Admission Date: 04/04/22 Discharge Date: 04/05/22 Disposition: ROUTINE DISCHARGE Discharge Condition: GOOD Reason for Admission: DKA, pancreatitis Brief History of Present Illness: 41-year-old male who denies any previous medical history presents the emergency department with high blood sugar, nausea, abdominal pain. His family at bedside reports that a couple years ago he was told he was diabetic and he took insulin for a short period of time but stopped taking it on his own volition. He reports abdominal pain and nausea last few days as well as increased thirst/urination. His checked his blood sugar and found it to be running in the 300s. His labs in the ER demonstrated DKA, CT abdomen pelvis IV contrast showed mild uncomplicated acute pancreatitis, lipase was within normal limits although patient does have mild abdominal pain. He was started on insulin drip, will be moved to the ICU for further management. Hospital Course: Problem List Diabetes mellitus type 2 with DKA Acute pancreatitis Patient presented with nausea, abdominal pain, polyuria, polydipsia, and found to have high glucose levels. In [facility] ED, he was found to be in DKA. CT abdomen/pelvis noted some mild inflammatory changes of his pancreas and lipase levels were normal and stable. He had improvement/resolution of his symptoms with insulin drip. He was transitioned to insulin 70/30 with acceptable glucose levels. Counselled on checking glucose levels 3 times a day, keeping a log, and following up / establishing with a PCP to further fine tune his insulin dose. Discuss briefly benefits of diabetic diet and excercise, and avoidance of alcohol. Discussed his uncontrolled diabetes is likely what triggered the inflammation around his pancreas, but possibility of now or in the future that drinking alcohol (no matter how much) can lead to acute pancreatitis, and can lead to DKA. Discharged with insulin 70/30 25units twice daily. Advised to increase by 2units each day if fasting blood glucose > 200. Vital Signs/Physical Exam: Temp Pulse Resp BP Pulse Ox 96.6 F L 83 14 125/89 100 04/05/22 12:00 04/05/22 14:00 04/05/22 14:00 04/05/22 14:00 04/05/22 14:00 General: Alert, In no apparent distress, Oriented x3 HEENT: EOMI, Sclerae nonicteric Respiratory: Clear to auscultation bilaterally, Normal air movement Cardiovascular: No edema, Regular rate/rhythm Gastrointestinal: Soft and benign, Non-distended, No tenderness Musculoskeletal: No contractures, No tenderness Integumentary: No rashes, No significant lesion Neurological: Normal speech, Normal strength at 5/5 x4 extr, Normal affect Laboratory Data at Discharge: WBC 6.20 K/uL (4.3-10.9) 04/05/22 04:38 Hgb 13.5 g/dL (13.6-17.9) L 04/05/22 04:38 Hct 39.6 % (39.6-49.0) 04/05/22 04:38 Plt Count 171 K/uL (152-406) 04/05/22 04:38 Sodium 135 mmol/L (136-145) L 04/05/22 04:38 Potassium 3.6 mmol/L (3.5-5.1) D 04/05/22 04:38 BUN 12 mg/dL (7-18) 04/05/22 04:38 Creatinine 0.76 mg/dL (0.70-1.30) 04/05/22 04:38 Glucose 210 mg/dL (74-106) H 04/05/22 04:38 Phosphorus 2.1 mg/dL (2.5-4.9) L 04/05/22 04:38 Magnesium 2.0 mg/dL (1.6-2.4) 04/05/22 04:38 Total Bilirubin 0.9 mg/dL (0.2-1.0) 04/03/22 22:20 AST 21 U/L (15-37) 04/03/22 22:20 ALT 20 U/L (16-61) 04/03/22 22:20 Alkaline Phosphatase 109 U/L (45-117) 04/03/22 22:20 Triglycerides 358 mg/dL (<150) H 04/04/22 00:45 Cholesterol 238 mg/dL (<200) H 04/04/22 00:45 HDL Cholesterol 51 mg/dL (40-60) 04/04/22 00:45 Cholesterol/HDL Ratio 4.67 04/04/22 00:45 Lipase 161 U/L (73-393) 04/05/22 04:38 Home Medications: Insulin 70/30 NPH/Reg Human [Novolin 70/30*] 25 unit SQ BID 30 Days #20 ml 04/05/22 New Medications: Insulin 70/30 NPH/Reg Human [Novolin 70/30*] 25 unit SQ BID 30 Days #20 ml Physician Discharge Instructions: Patient presented with nausea, abdominal pain, polyuria, polydipsia, and found t o have high glucose levels. In [facility] ED, he was found to be in DKA. CT abdomen/pelvis noted some mild inflammatory changes of his pancreas and lipase levels were normal and stable. He had improvement/resolution of his symptoms with insulin drip. He was transitioned to insulin 70/30 with acceptable glucose levels. Counselled on checking glucose levels 3 times a day, keeping a log, and following up / establishing with a PCP to further fine tune his insulin dose. Discuss briefly benefits of diabetic diet and excercise, and avoidance of alcohol. Discussed his uncontrolled diabetes is likely what triggered the inflammation around his pancreas, but possibility of now or in the future that drinking alcohol (no matter how much) can lead to acute pancreatitis, and can lead to DKA. Discharged with insulin 70/30 25units twice daily. Advised to increase by 2units each day if fasting blood glucose > 200. PROBLEM: Diabetes GOAL: Clear understanding of disease process INSTRUCTIONS: Diet: ADA Activity: Ad cele DME DME: Date Ordered: Name of Company: [employer] Services Needed: Name of Company: Date or Referral: IMMUNIZATION Influenza Vaccine Indicated: No Influenza Vaccine Given: Date Given: Pneumonia Vaccine Indicated: No Pneumonia Vaccine Given: Date Given: Diet: ADA Activity: Ad cele Time spent managing pt's care (in minutes): 45
== END 2022-04-05 14:45 | disposition home or self-care (01) | DRG 637 ==
LOC: ER 20:30 → ERHOLD 04-04 01:18 → 3RD-ICU 04-04 02:04
PROVIDERS: ADMIT Hospitalist; ATTEND Hospitalist
DX: E11.10 Type 2 diabetes mellitus with ketoacidosis without coma (principal); K85.90 Acute pancreatitis without necrosis or infection, unspecified; F17.210 Nicotine dependence, cigarettes, uncomplicated; Z28.310 Unvaccinated for COVID-19; Z20.822 Contact with and (suspected) exposure to COVID-19
CPT/HCPCS: 36415; 74177; 80048; 80053; 80061; 81003; 81015; 82010; 82947; 83036; 83690; 83735; 84100; 85025; 87811; 96361; 96372; 96374; 96375; 99285; J0500; J1650; J1815; J2405; J7030; J7799; Q9967